=== PATIENT | male | born 1950 | race Caucasian/White ===

== ENCOUNTER 2021-06-02 00:39 | Day surgery (SDC) | payer MEDICARE, SELFPAY ==
[2021-05-25 14:01] VITALS: BMI 32.0
--- NOTE | 2021-06-01 12:01 | P.PNAN_ITS ---
Anes - Initial Pre Proc Eval Procedure: Operation Date: 06/02/21 07:30 Proposed Procedures p Screening Colonoscopy - Maxwell Finley MD Date/Time: 06/01/21 12:01 Surgeon: Maxwell Finley MD Pre Op Diagnosis: hx of colon polyps Patient Data Age: 70 Gender: M Height: 1.83 m Weight: 107 kg Allergies Allergy/AdvReac Type Severity Reaction Status Date / Time No Known Allergies Allergy Mild Unverified 05/25/21 13:59 Home Medications Medication Instructions Recorded Confirmed Type sod picosulf 10 mg-magnes 3.5 160 ml PO DAILY #160 ml 05/01/21 Rx gram-citric 12 gram/160 mL oral solution aspirin [Adult Low Dose Aspirin] 81 mg PO DAILY 05/25/21 05/25/21 History finasteride 5 mg PO DAILY 05/25/21 05/25/21 History levothyroxine 75 mcg PO DAILY 05/25/21 05/25/21 History losartan-hydrochlorothiazide 1 tablet PO DAILY 05/25/21 05/25/21 History metformin 1,000 mg PO BID 05/25/21 05/25/21 History rosuvastatin 40 mg PO DAILY 05/25/21 05/25/21 History Patient hx anesthesia problems: none Family hx anesthesia problems: none [facility], [facility] Past Medical History Medical History (Updated 06/01/21 @ 12:02 by Darinel Garcia DO) Diabetes type 2, controlled Hyperlipidemia Hypertension Hypothyroidism Surgical History Surgical History (Updated 06/01/21 @ 12:02 by Darinel Garcia DO) History of coronary artery stent placement 1999 Social History Social History Smoking status: Current every day smoker Tobacco type: smokeless tobacco Smokeless tobacco user: chewing tobacco Alcohol intake: current Drinks per week: 1 Living arrangements: with family Spiritual care concerns: No Anes - Eval Final PreProcedure Day of Procedure 06/01/21 12:01 Patient weight: obese Heart: regular rate and rhythm Lungs: clear to auscultation and normal air movement Airway: Mallampati scale class II Neurological: alert and oriented Last oral intake: >/= 8 hours ASA classification: III Emergent: no Anesthetic plan: proceed Anesthesia type and monitoring: general GIVS and standard monitoring Informed Consent: The patient's anesthetic plan and its attendant risks and benefits were discussed with the patient/family/POA. Questions were solicited and answers provided to the satisfaction of the patient/family/POA.
[2021-06-02 06:17] VITALS: BP 126/76; PULSE 50; TEMP 35.7; O2SAT 100
[2021-06-02 06:33] LABS: Glucose Point of Care 125 mg/dl (65-105)
[2021-06-02] MEDS: LACTATED RINGERS 1,000 ML 150 ML IV CONT (06:44)
--- NOTE | 2021-06-02 07:14 | WPDGICN ---
Assessment and Plan Assessment and plan (1) History of colon polyps: Code(s): Z86.010 - Personal history of colonic polyps Status: Acute Assessment and Plan: Patient has prior history of colon polyps. Last exam was 5 years ago. Plan is for screening colonoscopy today. (2) Family history of colon cancer in mother: Code(s): Z80.0 - Family history of malignant neoplasm of digestive organs Status: Acute Assessment and Plan: Patient's mother had colon cancer for this reason surveillance colonoscopy should be considered at 5 year intervals. GI Consult Note Consult date/time: 06/02/21 07:14 HPI: Michael Spencer is a 70 year old male Presents for screening colonoscopy. Patient has a prior history of colon polyps. His most recent colonoscopy was 5 years ago. Patient reports that his current weight appetite bowel movements are normal. He denies abdominal pain. He has had no bleeding. Family history is significant that his mother had colon cancer. Review of Systems Review of Systems: All systems reviewed & are unremarkable except as noted in HPI and below PMFSH Past Medical History Medical History (Updated 06/02/21 @ 07:16 by Maxwell Finley MD) Diabetes type 2, controlled Hyperlipidemia Hypertension Hypothyroidism Surgical History Surgical History (Updated 06/01/21 @ 12:02 by Darinel Garcia DO) History of coronary artery stent placement 1999 Social History Social History Smoking status: Current every day smoker Tobacco type: smokeless tobacco Smokeless tobacco user: chewing tobacco Alcohol intake: current Drinks per week: 1 Living arrangements: with family Spiritual care concerns: No Meds Home Medications and Allergies Home Medications Medication Instructions Recorded Confirmed Type sod picosulf 10 mg-magnes 3.5 160 ml PO DAILY #160 ml 05/01/21 Rx gram-citric 12 gram/160 mL oral solution aspirin [Adult Low Dose Aspirin] 81 mg PO DAILY 05/25/21 05/25/21 History finasteride 5 mg PO DAILY 05/25/21 05/25/21 History levothyroxine 75 mcg PO DAILY 05/25/21 05/25/21 History losartan-hydrochlorothiazide 1 tablet PO DAILY 05/25/21 05/25/21 History metformin 1,000 mg PO BID 05/25/21 05/25/21 History rosuvastatin 40 mg PO DAILY 05/25/21 05/25/21 History Allergies Allergy/AdvReac Type Severity Reaction Status Date / Time No Known Allergies Allergy Mild Unverified 05/25/21 13:59 Vital Signs Vital Signs - 24 hr 06/02/21 06:17 Temperature 96.3 F L Pulse Rate 50 L Blood Pressure 126/76 Pulse Oximetry 100 Exam Narrative: Physical exam reveals patient to be alert. Vital signs stable. HEENT exam is unremarkable. Patient is anicteric. Lungs are clear to auscultation and percussion. Heart is without murmur or extra sounds. Abdominal exam bowel sounds are present soft nontender with no hepatosplenomegaly. Digital external rectal exam is normal.
[2021-06-02 07:57] VITALS: BP 86/54; PULSE 47; RESP 16; O2SAT 93
[2021-06-02 08:07] VITALS: BP 106/69; PULSE 60; RESP 21; O2SAT 96
[2021-06-02 08:17] VITALS: BP 120/73; PULSE 48; RESP 17; O2SAT 100
== END 2021-06-02 08:28 | disposition home or self-care (01) ==
PROVIDERS: PCP Internal Medicine; Visit Provider Internal Medicine Gastroenterology
PROC: 0DJD8ZZ Inspection of Lower Intestinal Tract, Via Natural or Artificial Opening Endoscopic (ICD-10-PCS; CPT 45378; principal; 2021-06-02 07:30)
DX: Z12.11 Encounter for screening for malignant neoplasm of colon (principal); Z80.0 Family history of malignant neoplasm of digestive organs; K57.30 Diverticulosis of large intestine without perforation or abscess without bleeding; K64.8 Other hemorrhoids; K63.5 Polyp of colon; D12.3 Benign neoplasm of transverse colon; E11.9 Type 2 diabetes mellitus without complications; I10 Essential (primary) hypertension; E03.9 Hypothyroidism, unspecified; E78.5 Hyperlipidemia, unspecified; Z79.82 Long term (current) use of aspirin; F17.210 Nicotine dependence, cigarettes, uncomplicated; E66.9 Obesity, unspecified; Z68.31 Body mass index [BMI] 31.0-31.9, adult
CPT/HCPCS: 45385; 82948; 88305; J2001; J2704; J7120